=== PATIENT | female | born 1960 | race Caucasian/White ===

== ENCOUNTER 2020-12-10 15:47 | Emergency (ER) | payer OTHER ==
[~2020-12-10] VITALS: Ht 154.9 cm; Wt 74.8 kg
--- NOTE | 2020-12-10 16:12 | NUR ---
PATIENT WHEELCHAIR ASSISTED TO ER BED 09
[2020-12-10 16:17] VITALS: BP 146/84
--- NOTE | 2020-12-10 16:22 | NUR ---
59 Y/O FEMALE BIB DAUGHTER W/C ASSISTED C/O WEAKNESS, DIZZINESS, FACIAL NUMBNESS DESCRIBES "STINGING" S/P PT ACCIDENTALY INGESTED NUNEZ POISON INSTEAD OF PROTEIN POWDER FOR HER SMOOTHIE X2HRS AGO. PT STATES +N, VOMITED 1 TIME GREEN BILE WITH 2 EPISODES OF DIARRHEA. DENIES FEVER/CHILLS. DENIES PAIN. ABDOMEN IS SOFT, ROUND, BOWEL SOUNDS ACTIVE X4 LAST BM 12/10/20. PMH: HTN NKA
--- NOTE | 2020-12-10 16:25 | NUR ---
Spoke with Tram from poison control. Recommends 6hr observation, UA, ekg, blood work. Atropine if hr drops or symptomatic bradycardia. Needs family to please get more info and call back with information. Common symptoms N/V/D, skin irritation from oral exposure 3-5 days after ingestion, hypotension, seizures, lethargy, and metabolic acidosis. Uncommon cholinergic toxidrome symtoms: sweating, severe diarrhea, bradycardia, bronchospasms.
--- NOTE | 2020-12-10 16:31 | NUR ---
Dr. Barbosa at pt bedside for further evaluation.
[2020-12-10] MEDS ORDERED: NACL 0.9% 1,000 ML IV ONE ×3 (16:40→23:35)
[2020-12-10] MEDS ORDERED: ONDANSETRON 4 MG/2 ML VIAL IVP ONE (16:40)
--- NOTE | 2020-12-10 17:30 | NUR ---
Pt assisted to bedside commode. Fall precautions in place.
[2020-12-10 17:32] LABS: BASOPHILS % (AUTO) 0.2 % (0.0-2.0); EOSINOPHILS # (AUTO) 0.1 K/uL (0-0.4); EOSINOPHILS % (AUTO) 1.1 % (0.0-4.0); HEMATOCRIT 41.3 % (36-48); HEMOGLOBIN 13.5 g/dL (12.0-16.0); LYMPHOCYTES # (AUTO) 1.9 K/uL (2.5-16.5); LYMPHOCYTES % (AUTO) 17.4 % (20.5-51.1); MEAN CORPUSCULAR HEMOGLOBIN 29 pg (27-31); MEAN CORPUSCULAR HGB CONC 33 g/dL (33-37); MEAN CORPUSCULAR VOLUME 88.2 fL (80-94); MONOCYTES # (AUTO) 0.5 K/uL (0.8-1.0); MONOCYTES % (AUTO) 4.4 % (1.7-9.3); NEUTROPHILS # (AUTO) 8.5 K/uL (1.8-7.7); NEUTROPHILS % (AUTO) 76.9 % (42.2-75.2); PLATELET COUNT (AUTO) 326 K/uL (140-450); RED BLOOD CELL COUNT(AUTO) 4.68 MIL/uL (4.20-5.40); RED CELL DISTRIBUTION WIDTH 12.9 % (11.6-13.7); WHITE BLOOD COUNT (AUTO) 11.1 K/uL (4.8-10.8)
--- NOTE | 2020-12-10 17:35 | NUR ---
PT URINATED BEDSIDE ON BEDPAN. 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
--- NOTE | 2020-12-10 17:42 | NUR ---
Pt resting in bed, visible equal rise and fall of chest, VSS, will continue to monitor.
[2020-12-10 17:48] LABS: BILIRUBIN,URINE NEGATIVE (NEGATIVE); BLOOD, URINE NEGATIVE (NEGATIVE); LEUKOCYTE ESTERASE ,URINE 1+ (NEGATIVE); NITRITE, URINE NEGATIVE (NEGATIVE); PH,URINE 5.5 (5.0-9.0); UGLUCOSE NEGATIVE (NEGATIVE)
[2020-12-10 17:52] LABS: APPEARANCE,URINE HAZY (CLEAR); COLOR,URINE YELLOW (YELLOW)
[2020-12-10 17:54] LABS: ALBUMIN 4.1 g/dL (3.4-5.0); ANION GAP 11.7 (8-16); ASPARTATE AMINOTRANSFERASE 20 U/L (15-37); CARBON DIOXIDE 27.7 mmol/L (21-32); CHLORIDE 104 mmol/L (98-107); CREATININE 0.6 mg/dL (0.6-1.3); GFR ARICAN-AMERICAN 132 mL/min (>90); GLUCOSE 148 mg/dL (74-106); POTASSIUM 3.4 mmol/L (3.5-5.1); SALICYLATE 3.5 mg/dL (2.8-20.0); SODIUM SERUM 140 mmol/L (136-145); TOTAL BILIRUBIN 0.2 mg/dL (0.0-1.0); UREA NITROGEN, BLOOD 10 mg/dL (7-18)
--- NOTE | 2020-12-10 17:54 | NUR ---
Collected PARMJIT CALVILLO, walked to lab. Gave to [employer] tech.
[2020-12-10 17:57] LABS: ACETAMINOPHEN < 0.5 ug/ml (10-30)
[2020-12-10 18:00] LABS: PROTHROMBIN TIME 9.5 secs (10.8-13.4)
[2020-12-10 18:07] LABS: RBC,URINE NONE SEEN /HPF (0-5); WBC,URINE 20-60 /HPF (0-5)
[2020-12-10 18:18] LABS: BARBITURATE, URINE NEGATIVE ng/ml (NEG <=200)
[2020-12-10 18:19] LABS: BENZODIAZEPINE, URINE NEGATIVE ng/mL (NEG <=200); CANNABINOID, URINE NEGATIVE ng/mL (NEG <=50); COCAINE, URINE NEGATIVE ng/mL (NEG <=300); OPIATE, URINE NEGATIVE ng/mL (NEG <=2000); PHENCYCLIDINE SCREEN,URINE NEGATIVE ng/mL (NEG <=25)
--- NOTE | 2020-12-10 18:44 | NUR ---
Pt resting, pt daughter at bedside. VSS, will continue to monitor.
--- NOTE | 2020-12-10 19:13 | NUR ---
Gave report to JOI Alberts. Transfer of care at this time.
--- NOTE | 2020-12-10 19:22 | NUR ---
Report received from Rosa TAMEZ for continuity of care.
[2020-12-10] MEDS ORDERED: POTASSIUM CHLORIDE 20% 40 MEQ/15 ML UDC PO ONE (23:35)
[2020-12-10] MEDS ORDERED: FAMO-90 PO (23:41)
[2020-12-10] MEDS ORDERED: ONDA-24 SL (23:41)
[2020-12-10 23:43] LABS: ANION GAP 9.3 (8-16); CARBON DIOXIDE 28.5 mmol/L (21-32); CREATININE 0.5 mg/dL (0.6-1.3); POTASSIUM 3.8 mmol/L (3.5-5.1)
[2020-12-11 00:29] VITALS: BP 114/67
--- NOTE | 2020-12-11 00:45 | NUR ---
Patient discharged with v/s stable. Written and verbal after care instructions given and explained. Patient alert, oriented and verbalized understanding of instructions. Ambulatory with steady gait. All questions addressed prior to discharge. ID band removed. Patient advised to follow up with PMD. Rx of PEPCID AND ZOFRAN given. Patient educated on indication of medication including possible reaction and side effects. Opportunity to ask questions provided and answered.
== END 2020-12-11 00:24 | disposition home or self-care (01) ==
LOC: MED 15:47
DX: T65.891A Toxic effect of other specified substances, accidental (unintentional), initial encounter (principal); Z20.822 Contact with and (suspected) exposure to COVID-19; R11.2 Nausea with vomiting, unspecified; E86.0 Dehydration; I10 Essential (primary) hypertension; Y92.89 Other specified places as the place of occurrence of the external cause
CPT/HCPCS: 36415; 36600; 80048; 80053; 80305; 81001; 82803; 85025; 85610; 85730; 87040; 87086; 87426; 93005; 96361; 96374; 99291; G0480; G0482; J2405; J7030